=== PATIENT | male | born 1965 | race Caucasian/White ===

== ENCOUNTER 2021-01-28 22:39 | Emergency (ER) | payer OTHER ==
[~2021-01-28] VITALS: Ht 170.2 cm; Wt 67.1 kg
[2021-01-29] MEDS ORDERED: IBUPROFEN800 MG PO (01:39)
[2021-01-29] MEDS ORDERED: BUSPIRONE HCL5 MG PO (01:39)
[2021-01-29] MEDS ORDERED: ACETAMINOPHEN325 M1 PO (01:40)
[2021-01-29] MEDS ORDERED: NICOTINE LOZENGE4 MG BUCCAL (01:40)
[2021-01-29] MEDS ORDERED: LISINOPRIL10 MG PO (01:41)
[2021-01-29] MEDS ORDERED: GABAPENTIN300 MG PO (01:41)
== END 2021-01-29 04:40 | disposition home or self-care (01) ==
LOC: ED 22:39
DX: F20.9 Schizophrenia, unspecified (principal); F19.10 Other psychoactive substance abuse, uncomplicated; J44.9 Chronic obstructive pulmonary disease, unspecified; M19.90 Unspecified osteoarthritis, unspecified site; Z79.899 Other long term (current) drug therapy
CPT/HCPCS: 80053; 81001; 84443; 85025; 99283; G0480

== ENCOUNTER 2021-02-01 12:56 | Emergency (ER) | payer OTHER ==
[~2021-02-01] VITALS: Ht 170.2 cm; Wt 67.1 kg
[~2021-02-01 12:56] MED LIST: ACETAMINOPHEN325 M1 PO; BUSPIRONE HCL5 MG PO; GABAPENTIN300 MG PO; IBUPROFEN800 MG PO; LISINOPRIL10 MG PO; NICOTINE LOZENGE4 MG BUCCAL
[2021-02-01] MEDS ORDERED: METHOCARBAMOL750 MG PO (14:08)
[2021-02-01] MEDS ORDERED: QUETIAPINE FUM100 MG PO (14:08)
--- OUTSIDE RECORDS SUMMARY | 2021-02-01 14:44 | XMS ---
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 Wil has no Care Guidelines for this patient. E.D. VISIT COUNT (12 MO.) 3 [facility] TOTAL 3 NOTE: Visits indicate total known visits. ED/C VISIT TRACKING (12 MO.) 02/01/2021 12:56 [facility] [place] TYPE: Emergency COMPLAINT: - MEDICAL CLEARANCE 01/29/2021 09:40 [facility] [place] TYPE: Emergency COMPLAINT: - MEDICAL CLEARANCE 01/28/2021 22:39 [facility] [place] TYPE: Emergency COMPLAINT: - MEDICAL CLEARANCE DIAGNOSES: - Unspecified osteoarthritis, unspecified site - Suicidal ideations - Other psychoactive substance abuse, uncomplicated - Schizophrenia, unspecified - Other intermediate school teacher (current) drug therapy - Chronic obstructive pulmonary disease, unspecified INPATIENT VISIT TRACKING (12 MO.) No inpatient visits to display in this time frame [id number]
== END 2021-02-01 16:45 | disposition home or self-care (01) ==
LOC: ED 12:56
DX: F41.9 Anxiety disorder, unspecified (principal); R45.1 Restlessness and agitation; T43.595A Adverse effect of other antipsychotics and neuroleptics, initial encounter; J44.9 Chronic obstructive pulmonary disease, unspecified; M19.90 Unspecified osteoarthritis, unspecified site; Z79.899 Other long term (current) drug therapy
CPT/HCPCS: 99284

== ENCOUNTER 2021-02-15 19:27 | Emergency (ER) | payer OTHER ==
[~2021-02-15] VITALS: Ht 170.2 cm; Wt 70.3 kg
[~2021-02-15 19:27] MED LIST changes: +METHOCARBAMOL750 MG PO; +QUETIAPINE FUM100 MG PO
--- OUTSIDE RECORDS SUMMARY | 2021-02-15 19:30 | XMS ---
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 Wil has no Care Guidelines for this patient. [facility] NOTE: Visits indicate total known visits. ED/C VISIT TRACKING (12 MO.) 02/15/2021 19:28 [facility] [place] TYPE: Emergency COMPLAINT: - SOB/CHEST PAIN 02/01/2021 12:56 [facility] [place] TYPE: Emergency COMPLAINT: - MEDICAL CLEARANCE DIAGNOSES: - Unspecified osteoarthritis, unspecified site - Chronic obstructive pulmonary disease, unspecified - Adverse effect of other antipsychotics and neuroleptics, initial encounter - Other terminal operations supervisor (current) drug therapy - Restlessness and agitation - Anxiety disorder, unspecified 01/29/2021 09:40 [facility] [place] TYPE: Emergency COMPLAINT: - MEDICAL CLEARANCE 01/28/2021 22:39 [facility] [place] TYPE: Emergency COMPLAINT: - MEDICAL CLEARANCE DIAGNOSES: - Unspecified osteoarthritis, unspecified site - Restlessness and agitation - Anxiety disorder, unspecified - Suicidal ideations - Other psychoactive substance abuse, uncomplicated - Schizophrenia, unspecified - Other penitentiary (current) drug therapy - Chronic obstructive pulmonary disease, unspecified - Adverse effect of other antipsychotics and neuroleptics, initial encounter INPATIENT VISIT TRACKING (12 MO.) No inpatient visits to display in this time frame [id number]
--- NOTE | 2021-02-17 19:29 | EKG ---
[facility] [address] [place] [address] Signed Sinus tachycardia with premature atrial complexes Otherwise normal ECG No previous ECGs available Confirmed by VICTOR M SMITH MD ([id number] on 02/17/2021 7:28:49 PM Electronically Signed By: VICTOR M SMITH MD 02/17/211928 PATIENT NAME: CUBA MARTE Electrocardiogram DATE OF : 67 PHYSICIAN: VICTOR M SMITH MD REPORT #: [id number] REPORT IS CONFIDENTIAL AND NOT TO BE RELEASED WITHOUT AUTHORIZATION
== END 2021-02-15 23:59 | disposition home or self-care (01) ==
LOC: ED 19:27
DX: U07.1 COVID-19 (principal); J44.9 Chronic obstructive pulmonary disease, unspecified; M19.90 Unspecified osteoarthritis, unspecified site; Z87.891 Personal history of nicotine dependence; Z79.899 Other long term (current) drug therapy
CPT/HCPCS: 71045; 80053; 83880; 84484; 85025; 93005; 93010; 99285-25; C9803; M0243; Q0244; U0003